=== PATIENT | male | born 1980 | race Caucasian/White ===

== ENCOUNTER 2021-11-11 23:14 | Emergency (ER) | payer SELFPAY ==
[2021-11-12 02:27] LABS: BASOPHIL 0.3 % (0-2); BILIRUBIN 1+ mg/dL (NEGATIVE); BLOOD 2+ Ery/uL (NEGATIVE); CLARITY CLEAR (CLEAR); COLOR YELLOW (YELLOW); EOSINOPHIL 0.5 % (0-5); GLUCOSE (U) TRACE mg/dL (NORMAL); HCT 42.9 % (42.0-52.0); HGB 14.8 g/dl (13.2-18.0); LEUKOCYTES 1+ Leu/uL (NEGATIVE); LYMPHOCYTE 13.7 % (15-48); MCH 30.6 pg (25.0-31.0); MCHC 34.5 g/dL (32.0-36.0); MCV 88.6 fL (78.0-100.0); MONOCYTE 10.5 % (0-12); MPV 9.7 fL (6.0-9.5); NEUTROPHIL 74.6 % (41-80); NITRITE NEGATIVE (NEGATIVE); NRBC 0; PLT 225 K/uL (150-400); PROTEIN 1+ mg/dL (NEGATIVE); RBC 4.84 M/uL (4.70-6.00); RDW 12.5 % (11.5-14.0); SPECIFIC GRAVITY >=1.030 (1.001-1.030); WBC 16.5 K/uL (4.0-10.5)
[2021-11-12 02:29] LABS: BUN/CREAT RATIO (CALC) 12.8 RATIO; CREATININE 0.86 mg/dL (0.67-1.17); POTASSIUM 3.8 mmol/L (3.5-5.1)
[2021-11-12] MEDS ORDERED: VIBRAMYCIN100 MG PO (02:33)
[2021-11-12 02:35] LABS: BACTERIA 3+; MUCOUS MODERATE; URINARY WBC TNTC
[2021-11-13 19:08] LABS: CHLAMYDIA TRACHOMATIS, NAA Positive (Negative); NEISSERIA GONORRHOEAE, NAA Negative (Negative)
== END 2021-11-12 02:55 | disposition home or self-care (01) ==
LOC: FER 23:14
PROVIDERS: Internal Medicine
DX: N45.1 Epididymitis (principal); N43.3 Hydrocele, unspecified; F17.290 Nicotine dependence, other tobacco product, uncomplicated
CPT/HCPCS: 36415; 76870; 80048; 81001; 85025; 87088; 87491; 87591; J0696

== ENCOUNTER 2022-01-29 11:21 | Emergency (ER) | payer OTHER ==
[~2022-01-29 11:21] MED LIST: VIBRAMYCIN100 MG PO
[2022-01-29 12:30] LABS: CORONAVIRUS 2019 SARS-COV-2 NEGATIVE (NEGATIVE); INFLUENZA A NAA NEGATIVE (NEGATIVE)
[2022-01-29 13:25] LABS: BILIRUBIN 1+ mg/dL (NEGATIVE); BLOOD 1+ Ery/uL (NEGATIVE); CLARITY CLEAR (CLEAR); COLOR YELLOW (YELLOW); GLUCOSE (U) NORMAL (NORMAL); LEUKOCYTES NEGATIVE Leu/uL (NEGATIVE); NITRITE NEGATIVE (NEGATIVE); PROTEIN 1+ mg/dL (NEGATIVE); SPECIFIC GRAVITY >=1.030 (1.001-1.030)
[2022-01-29 13:41] LABS: BACTERIA TRACE; MUCOUS LARGE; SQUAMOUS EPITHELIAL CELLS RARE
== END 2022-01-29 13:52 | disposition home or self-care (01) ==
LOC: FER 11:21
PROVIDERS: Emergency Medicine; Nurse Practitioner Family
DX: B34.9 Viral infection, unspecified (principal); Z20.822 Contact with and (suspected) exposure to COVID-19
CPT/HCPCS: 81001; 87880; 99283; U0002